=== PATIENT | male | born 1990 | race Two or more races ===

== ENCOUNTER 2022-10-18 13:37 | Emergency (ER) | payer OTHER ==
[~2022-10-18] VITALS: Ht 172.7 cm; Wt 93.2 kg
[2022-10-18] MEDS ORDERED: KETOROLAC TROMETHAMINE 30 MG/ML VIAL IM ONE (15:30)
[2022-10-18] MEDS ORDERED: CEPH-558 PO (17:21)
[2022-10-18 17:26] VITALS: BP 116/68
== END 2022-10-18 17:31 | disposition home or self-care (01) ==
LOC: EMS 13:44
DX: M79.674 Pain in right toe(s) (principal); L98.491 Non-pressure chronic ulcer of skin of other sites limited to breakdown of skin; Z98.890 Other specified postprocedural states
CPT/HCPCS: 99283; 73630; 96372; J1885